=== PATIENT | male | born 1980 | race American Indian/Alaskan Native ===

== ENCOUNTER 2017-07-27 05:38 | Day surgery (SDC) | payer OTHER ==
[~2017-07-27 05:38] MED LIST: Midazolam 1 MG/ML 2 ML SDV ONE; fentaNYL 100 MCG/2 ML SDV ONE
[2017-07-27] MEDS ORDERED: Midazolam 1 MG/ML 2 ML SDV IV ONE ×7 (05:39→06:37)
[2017-07-27] MEDS ORDERED: fentaNYL 100 MCG/2 ML SDV IV ONE ×4 (05:39→06:39)
[2017-07-27] MEDS ORDERED: Dextrose 5%-0.45% NaCl 1,000 ML IV SCH (06:30)
[2017-07-27] MEDS ORDERED: Sodium Chloride 0.9% 10 ML Syringe FLUSH PRN (06:30)
--- NOTE | 2017-07-27 07:30 | OR ---
DATE: 07/27/2017 PROCEDURE: Total colonoscopy. INSTRUMENT USED: CF-H180AL Olympus video colonoscope. Olympus disposable detachment. PREMEDICATIONS: Fentanyl 125 mcg intravenous, Versed 4 mg intravenous. The procedure was done under pulse oximetry, BP recording, and matchbook maker. INDICATION: The patient with rectal bleeding. Colonoscopic examination is done for detection of any polypoid lesions and removal, endoscopic hemostasis therapy if needed. DESCRIPTION OF PROCEDURE: Initial rectal exam was unremarkable. Rigid anoscopy showed small internal hemorrhoids without bleed from them. The colonoscope was passed with ease up to the ileocecal area, photographs were taken of the normal- appearing cecum, identified by landmarks of appendiceal orifice and double- bulged ileocecal folds. No bleeding was noted from any of the visualized areas at the commencement of the examination. No stricture. No vascular ectasia. No large isolated ulcerations seen. No evidence of diffuse inflammatory bowel disease in the form of friability, contact bleeding, or ulcerations. No polyp or tumor mass identified. There was some fecal material in the colon that had to be aspirated. Probing the proximal sides of folds and flexures, using adequate distention and clearing of the stool material, withdrawal of the scope was made. Cecum to rectum time was over 6 minutes. No bleeding was noted from any of the visualized areas at the completion of examination. IMPRESSION: Internal hemorrhoids. The patient tolerated procedure well. [facility] /[id number]
--- NOTE | 2017-07-27 08:52 | LETTER ---
07/27/2017 Jacque Goncalves NP [facility] [address] [place] [address] RE: FRANSISCO ISMAELCYNDI CALDERÓN : 1980 Dear Ms. Goncalves: Mr. Layton Johnson had colonoscopic examination done this morning, and he tolerated the procedure well. I herewith send a copy of the endoscopy note and photographs for your review. Thank you. Sincerely, [facility] /[id number]
== END 2017-07-27 08:50 | disposition home or self-care (01) ==
LOC: DL.ENDO 05:38
PROVIDERS: ATTEND Internal Medicine Gastroenterology
DX: K64.8 Other hemorrhoids (principal); E66.9 Obesity, unspecified; Z72.0 Tobacco use
CPT/HCPCS: 45378; J2250; J3010; J7042

== ENCOUNTER 2020-04-19 21:26 | Emergency (ER) | payer BC, OTHER ==
--- NOTE | 2020-04-19 21:58 | EDM.PDOC ---
ED HPI GENERAL MEDICAL PROBLEM - General Stated Complaint: RIGHT HAND CAST TO TIGHT Time Seen by Provider: 04/19/20 21:30 Source of Information: Reports: Patient History Limitations: Reports: No Limitations - History of Present Illness INITIAL COMMENTS - FREE TEXT/NARRATIVE: C/O cast to tight, fx 3 weeks ago, new cast on Sunday, increased pain throbbing, tingling in extremity since. Scheduled to see ortho later today but can't wait. Notes used sling with prior cast but since sunday has not been using sling or keeping elevated as much. Tried ice in evening but did not help. Right Wrist Pain Score (Numeric/FACES): 4 - Related Data Allergies Allergy/AdvReac Type Severity Reaction Status Date / Time No Known Allergies Allergy Verified 04/19/20 21:34 Home Meds: Home Meds Acetaminophen/Codeine [Tylenol with Codeine No.3 300MG/30MG] 1 tab PO Q4H PRN 04/19/20 [History] Albuterol [Proair HFA] 2 puff IN Q4HR PRN 04/19/20 [History] Amitriptyline [Elavil] 10 mg PO DAILY 04/19/20 [History] Ibuprofen 800 mg PO Q12HR 04/19/20 [History] Itraconazole [Sporanox] 100 mg PO BID 04/19/20 [History] lisinopriL [Lisinopril] 20 mg PO DAILY 04/19/20 [History] Past Medical History HEENT History: Reports: Impaired Vision, Other (See Below) Other HEENT History: BILATERAL ASTIGMATISM Cardiovascular History: Reports: Heart Murmur, Hypertension, Other (See Below) Other Cardiovascular History: 'BORN WITH HEART MURMUR' Respiratory History: Reports: None Gastrointestinal History: Reports: Other (See Below) Other Gastrointestinal History: RECTAL BLEEDING Genitourinary History: Reports: Other (See Below) Other Genitourinary History: MICROSCOPIC HEMATURIA Musculoskeletal History: Reports: Other (See Below) Other Musculoskeletal History: LOWER LEFT BACK PAIN Neurological History: Reports: None Psychiatric History: Reports: Addiction, Anxiety, Other (See Below) Other Psychiatric History: TOBACCO HABITUATION Endocrine/Metabolic History: Reports: None Hematologic History: Reports: None Immunologic History: Reports: None Oncologic (Cancer) History: Reports: None Dermatologic History: Reports: None - Infectious Disease History Infectious Disease History: Reports: Chicken Pox, Influenza - Past Surgical History Head Surgeries/Procedures: Reports: None HEENT Surgical History: Reports: None Cardiovascular Surgical History: Reports: None Respiratory Surgical History: Reports: None GI Surgical History: Reports: None Male Surgical History: Reports: None Endocrine Surgical History: Reports: None Neurological Surgical History: Reports: None Musculoskeletal Surgical History: Reports: None Oncologic Surgical History: Reports: None Dermatological Surgical History: Reports: None Social & Family History - Family History Family Medical History: Noncontributory - Tobacco Use Smoking Status *Q: Never Smoker Second Hand Smoke Exposure: No - Caffeine Use Caffeine Use: Reports: None - Recreational Drug Use Recreational Drug Use: No Review of Systems - Review of Systems Review Of Systems: Comprehensive ROS is negative, except as noted in HPI. ED EXAM, GENERAL - Physical Exam Exam: See Below Exam Limited By: No Limitations General Appearance: Alert, Mild Distress Eye Exam: Bilateral Eye: EOMI, PERRL Ears: Hearing Grossly Normal Nose: Normal Inspection Throat/Mouth: Normal Voice Head: Atraumatic Cardiovascular: Normal Peripheral Pulses, Regular Rate, Rhythm, No Edema Extremities: Normal Capillary Refill, Arm Pain (right), Other (short arm cast right upper, good cap refill no obvious swelling, mild tightness of cast above wrist, with proximal border adequate spacing ) Neurological: Alert, Oriented, Normal Cognition, No Motor/Sensory Deficits Psychiatric: Normal Affect, Normal Mood Skin Exam: Warm, Dry, Intact, Normal Color ED TRAUMA EXTREMITY PROCEDURES - Additional/Other Procedure(s) Other (Free Text) Procedure(s): bilateral partial release with saw, proximal to mid cast notes some improvement Course - Vital Signs Last Recorded V/S: Last Vital Signs Temp 96.7 F L 04/19/20 21:30 Pulse 97 04/19/20 21:30 Resp 18 04/19/20 21:30 BP 106/86 04/19/20 21:30 Pulse Ox 98 04/19/20 21:30 Departure - Departure Time of Disposition: 21:53 Disposition: Home, Self-Care 01 Condition: Good Clinical Impression: Cast discomfort Wrist fracture, left Qualifiers: Encounter type: sequela Fracture type: closed Qualified Code(s): S62.102S - Fracture of unspecified carpal bone, left wrist, sequela - Discharge Information *PRESCRIPTION DRUG MONITORING PROGRAM REVIEWED*: No *COPY OF PRESCRIPTION DRUG MONITORING REPORT IN PATIENT MARGOT: No Instructions: Cast or Splint Care, Adult, [id number] Referrals: PCP,None [Primary Care Provider] - Forms: ED Department Discharge Additional Instructions: ELEVATE EXTREMITY sling alternate tylenol and ibuprofen for discomfort follow up with ortho tomorrow as scheduled Sepsis Event Note (ED) - Evaluation Sepsis Screening Result: No Definite Risk
== END 2020-04-19 21:56 | disposition home or self-care (01) ==
LOC: DL.ED 21:26
DX: S62.102S Fracture of unspecified carpal bone, left wrist, sequela (principal); Z47.89 Encounter for other orthopedic aftercare; I10 Essential (primary) hypertension; Z79.899 Other long term (current) drug therapy; X58.XXXS Exposure to other specified factors, sequela
CPT/HCPCS: 99282

== ENCOUNTER 2021-01-19 08:46 | Emergency (ER) | payer BC, OTHER ==
--- NOTE | 2021-01-19 09:23 | EDM.PDOC ---
ED HPI GENERAL MEDICAL PROBLEM - General Stated Complaint: [id number] SOB Time Seen by Provider: 01/19/21 09:22 Source of Information: Reports: Patient, Old Records, RN, RN Notes Reviewed History Limitations: Reports: No Limitations - History of Present Illness INITIAL COMMENTS - FREE TEXT/NARRATIVE: Layton is a 40 y/o male who presents to the ED via personal vehicle with complaints of persistent shortness of breath. The patient reports he has experienced this shortness of breath for roughly one month; he has an appointment with pulmonology on 01/25/21. He underwent a CT on 12/31/20 to further investigate a nodule noted in his right upper lung on CXR which confirmed a 4mm parenchymal granuloma. The patient reports utilizing DuoNebs q4h for the past month, which do provide alleviation of his symptoms. He also has been on two pulmonary bursts of prednisone 20mg on 12/01/20 and 12/28/20; the first pulmonary burst was accompanied with a Z-pack. The patient states he notices marked improvement in his breathing while on steroids, and for a few days after, however he returns to requiring frequent nebulizers a few days after completion of the steroids. He denies fever, shaking chills, post-nasal drip, sore throat, chest pain, palpitations, abdominal pain, nausea, vomiting, or diarrhea. He does attest to chest pressure when supine and dry cough. He reports a history of cigarette smoking with quit date of 2017; he reports he continues to smoke marijuana, but hasn't smoked in about three days. He denies alcohol use. - Related Data Allergies Allergy/AdvReac Type Severity Reaction Status Date / Time No Known Allergies Allergy Verified 04/19/20 21:34 Home Meds: Home Meds Acetaminophen/Codeine [Tylenol with Codeine No.3 300MG/30MG] 1 tab PO Q4H PRN 04/19/20 [History] Albuterol [Proair HFA] 2 puff IN Q4HR PRN 04/19/20 [History] Amitriptyline [Elavil] 10 mg PO DAILY 04/19/20 [History] Ibuprofen 800 mg PO Q12HR 04/19/20 [History] Itraconazole [Sporanox] 100 mg PO BID 04/19/20 [History] Ipratropium/Albuterol Sulfate [Iprat-Albut 0.5-3(2.5) mg/3 ml] 3 ml IH QID PRN 01/19/21 [History] Losartan [Cozaar] 25 mg PO DAILY 01/19/21 [History] Past Medical History HEENT History: Reports: Impaired Vision, Other (See Below) Other HEENT History: BILATERAL ASTIGMATISM Cardiovascular History: Reports: Heart Murmur, Hypertension, Other (See Below) Other Cardiovascular History: 'BORN WITH HEART MURMUR' Respiratory History: Reports: None Gastrointestinal History: Reports: Other (See Below) Other Gastrointestinal History: RECTAL BLEEDING Genitourinary History: Reports: Other (See Below) Other Genitourinary History: MICROSCOPIC HEMATURIA Musculoskeletal History: Reports: Other (See Below) Other Musculoskeletal History: LOWER LEFT BACK PAIN Neurological History: Reports: None Psychiatric History: Reports: Addiction, Anxiety, Other (See Below) Other Psychiatric History: TOBACCO HABITUATION Endocrine/Metabolic History: Reports: None Hematologic History: Reports: None Immunologic History: Reports: None Oncologic (Cancer) History: Reports: None Dermatologic History: Reports: None - Infectious Disease History Infectious Disease History: Reports: Chicken Pox, Influenza - Past Surgical History Head Surgeries/Procedures: Reports: None HEENT Surgical History: Reports: None Cardiovascular Surgical History: Reports: None Respiratory Surgical History: Reports: None GI Surgical History: Reports: None Male Surgical History: Reports: None Endocrine Surgical History: Reports: None Neurological Surgical History: Reports: None Musculoskeletal Surgical History: Reports: None Oncologic Surgical History: Reports: None Dermatological Surgical History: Reports: None Social & Family History - Family History Family Medical History: No Pertinent Family History - Caffeine Use Caffeine Use: Reports: None ED ROS GENERAL - Review of Systems Review Of Systems: Comprehensive ROS is negative, except as noted in HPI. ED EXAM, GENERAL - Physical Exam Exam: See Below Exam Limited By: No Limitations General Appearance: Alert, Anxious, Obese Eye Exam: Bilateral Eye: EOMI, Normal Inspection, PERRL (4mm) Ears: Normal External Exam, Normal Canal, Hearing Grossly Normal Ear Exam: Bilateral Ear: Auricle Normal, Canal Normal, TM Dull Nose: Normal Inspection, Normal Mucosa, No Blood Throat/Mouth: Normal Inspection, Normal Oropharynx, Normal Voice, No Airway Compromise Head: Atraumatic, Normocephalic Neck: Normal Inspection, Supple, Non-Tender, Full Range of Motion Respiratory/Chest: No Accessory Muscle Use, Chest Non-Tender, Wheezing (Inspiratory to right upper lobe) Cardiovascular: Normal Peripheral Pulses, Regular Rate, Rhythm, No Edema, No Gallop, No JVD, No Murmur, No Rub Peripheral Pulses: 2+: Radial (L), Radial (R) GI/Abdominal: Normal Bowel Sounds, Soft, Non-Tender, No Organomegaly, No Distention, No Abnormal Bruit, No Mass (Male) Exam: Deferred Rectal (Males) Exam: Deferred Back Exam: Normal Inspection, Full Range of Motion Extremities: Normal Inspection, Normal Range of Motion, Non-Tender, No Pedal Edema, Normal Capillary Refill Neurological: Alert, Oriented, CN II-XII Intact, Normal Cognition, Normal Gait, No Motor/Sensory Deficits Psychiatric: Anxious Skin Exam: Warm, Dry, Intact, Normal Color, No Rash Lymphatic: No Adenopathy #1 Interpretation EKG Date: 01/19/21 Time: 09:06 Rhythm: NSR Rate (Beats/Min): 78 [place]: Normal P-Wave: Present QRS: Wide (1.13) ST-T: Normal QT: Normal DE/PQ Interval: 0.153 Comparison: NA - No Prior EKG EKG Interpretation Comments: NSR; No evidence of myocardial ischemia Course - Vital Signs Last Recorded V/S: Last Vital Signs Temp 97.8 F 01/19/21 10:45 Pulse 74 01/19/21 10:45 Resp 20 01/19/21 10:45 BP 173/89 H 01/19/21 10:45 Pulse Ox 100 01/19/21 10:45 - Orders/Labs/Meds Labs: Laboratory Tests 01/19/21 01/19/21 01/19/21 Range/Units 08:55 09:11 09:11 WBC 10.2 H (5.0-10.0) 10^3/uL RBC 4.45 L (4.6-6.2) 10^6/uL Hgb 14.0 (14.0-18.0) g/dL Hct 41.5 (40.0-54.0) % MCV 93.3 (80-100) fL MCH 31.5 (27.0-34.0) pg MCHC 33.7 (33.0-35.0) g/dL Plt Count 248 (150-450) 10^3/uL Neut % (Auto) 58.3 (42.2-75.2) % Lymph % (Auto) 20.0 L (20.5-50.1) % Mason % (Auto) 5.4 (2-8) % Eos % (Auto) 15.5 H (1.0-3.0) % Baso % (Auto) 0.8 (0.0-1.0) % D-Dimer, Quantitative (0-400) ng/mL Sodium 141 (136-145) mmol/L Potassium 3.8 (3.5-5.1) mmol/L Chloride 106 (98-107) mmol/L Carbon Dioxide 20 L (21-32) mmol/L Anion Gap 18.8 H (7-13) mEq/L BUN 15 (7-18) mg/dL Creatinine 1.08 (0.70-1.30) mg/dL Est Cr Clr Drug Dosing 96.84 mL/min Estimated GFR (MDRD) > 60 BUN/Creatinine Ratio 13.9 (No establ ref range) Glucose 97 (70-99) mg/dL Lactic Acid (0.4-2.0) mmol/L Calcium 8.7 (8.5-10.1) mg/dL Total Bilirubin 0.7 (0.2-1.0) mg/dL AST 15 (15-37) U/L ALT 21 (16-63) U/L Alkaline Phosphatase 68 (46-116) U/L Troponin I < 0.017 (0.000-0.056) ng/mL C-Reactive Protein 0.9 (0.0-0.9) mg/dL Total Protein 6.7 (6.4-8.2) g/dL Albumin 3.6 (3.4-5.0) g/dL Globulin 3.1 Albumin/Globulin Ratio 1.2 Ethyl Alcohol < 3 (0) mg/dL Influenza Type A RNA Negative (NEGATIVE) Influenza Type B RNA Negative (NEGATIVE) SARS-CoV-2 RNA (LIZ) Negative (NEGATIVE) 01/19/21 01/19/21 Range/Units 09:11 09:11 WBC (5.0-10.0) 10^3/uL RBC (4.6-6.2) 10^6/uL Hgb (14.0-18.0) g/dL Hct (40.0-54.0) % MCV (80-100) fL MCH (27.0-34.0) pg MCHC (33.0-35.0) g/dL Plt Count (150-450) 10^3/uL Neut % (Auto) (42.2-75.2) % Lymph % (Auto) (20.5-50.1) % Mason % (Auto) (2-8) % Eos % (Auto) (1.0-3.0) % Baso % (Auto) (0.0-1.0) % D-Dimer, Quantitative < 100 (0-400) ng/mL Sodium (136-145) mmol/L Potassium (3.5-5.1) mmol/L Chloride (98-107) mmol/L Carbon Dioxide (21-32) mmol/L Anion Gap (7-13) mEq/L BUN (7-18) mg/dL Creatinine (0.70-1.30) mg/dL Est Cr Clr Drug Dosing mL/min Estimated GFR (MDRD) BUN/Creatinine Ratio (No establ ref range) Glucose (70-99) mg/dL Lactic Acid 1.7 (0.4-2.0) mmol/L Calcium (8.5-10.1) mg/dL Total Bilirubin (0.2-1.0) mg/dL AST (15-37) U/L ALT (16-63) U/L Alkaline Phosphatase (46-116) U/L Troponin I (0.000-0.056) ng/mL C-Reactive Protein (0.0-0.9) mg/dL Total Protein (6.4-8.2) g/dL Albumin (3.4-5.0) g/dL Globulin Albumin/Globulin Ratio Ethyl Alcohol (0) mg/dL Influenza Type A RNA (NEGATIVE) Influenza Type B RNA (NEGATIVE) SARS-CoV-2 RNA (LIZ) (NEGATIVE) - Radiology Interpretation Free Text/Narrative:: [facility] Final Radiology Report Call: [phone] assistance Online chat: [email or web address] Name: LAYTON MOODY Age: 40Years M Date: 01/19/2021 SSN: -- : 1980 Study: CR CHEST 1V FRONTAL Requesting Physician: Anayeli Restrepo Images: 1 Addl Studies: Provided Clinical History: shortness of breath Contrast: Contrast Medium: Contrast Amount: Contrast Method: CONFIDENTIALITY STATEMENT This report is intended only for use by the referring physician, and only in accordance with law. If you received this in error, call [phone]. Page 1 of 1 PROCEDURE INFORMATION: Exam: XR Chest Exam date and time: 01/19/2021 9:37 AM Age: 40 years old Clinical indication: Shortness of breath TECHNIQUE: Imaging protocol: XR of the chest. Views: 1 view. COMPARISON: CT Chest w Cont 12/31/2020 1:45 PM FINDINGS: Lungs: Unremarkable. No consolidation. Pleural spaces: Unremarkable. No pleural effusion. No pneumothorax. Heart/Mediastinum: Unremarkable. No cardiomegaly. Bones/joints: Unremarkable. IMPRESSION: No acute findings. Thank you for allowing us to participate in the care of your patient. Dictated and Authenticated by: Harjinder Bauer MD 01/19/2021 9:49 AM Central Time ([place] & [place]) - Re-Assessments/Exams Free Text/Narrative Re-Assessment/Exam: 01/20/21 CXR unremarkable for acute processes; no evidence of pneumonia, effusion, or edema. COVID and influenza negative. Electrolytes, kidney function, and liver function appropriate via CMP. Slight WBC elevation at 10.8 with no shift present; eosinophilia noted. Discussed findings of examination, lab work, and imaging with patient. Patient instructed to keep appointment with Pulmonology as he is in need of a control therapy medication in addition to his rescue medications. Patient states he is worried about "walking pneumonia" as he had an uncle diagnosed with this problem; discussed that this would be noted on x-ray and lab work. The patient reports he has not been taking his ARB for two days as he feels this is cause for his SOB; blood pressure 170s, systolic. Discussed side effects of ARBs, but risk vs. benefit, as well as discussing his concerns with his primary care provider. Red flag signs and symptoms which would warrant reevaluation reviewed. Patient verbalized understanding and agreement with the plan of care. Departure - Departure Time of Disposition: 10:36 Disposition: Home, Self-Care 01 Condition: Good Clinical Impression: Chronic shortness of breath - Discharge Information *PRESCRIPTION DRUG MONITORING PROGRAM REVIEWED*: Not Applicable *COPY OF PRESCRIPTION DRUG MONITORING REPORT IN PATIENT MARGOT: Not Applicable Instructions: Shortness of Breath, Adult, [id number] Referrals: Jacque Goncalves NP [Primary Care Provider] - Forms: ED Department Discharge Additional Instructions: 1.) Keep your appointment with your primary care provider tomorrow and discuss long-acting inhalers for chronic shortness of breath as well as new blood pressure medications. 2.) Keep your appointment with Pulmonology for 01/25/21. 3.) Continue with nebulizer treatments, as needed, for shortness of breath. 4.) Continue with Tessalon perles, as needed, for cough. Sepsis Event Note (ED) - Evaluation Sepsis Screening Result: No Definite Risk
[2021-01-19 09:42] LABS: ANION GAP 18.8 mEq/L (7-13); CHLORIDE,CL 106 mmol/L (98-107); SODIUM,NA 141 mmol/L (136-145)
--- NOTE | 2021-01-19 09:50 | CR ---
PROCEDURE INFORMATION: Exam: XR Chest Exam date and time: 01/19/2021 9:37 AM Age: 40 years old Clinical indication: Shortness of breath TECHNIQUE: Imaging protocol: XR of the chest. Views: 1 view. COMPARISON: CT Chest w Cont 12/31/2020 1:45 PM FINDINGS: Lungs: Unremarkable. No consolidation. Pleural spaces: Unremarkable. No pleural effusion. No pneumothorax. Heart/Mediastinum: Unremarkable. No cardiomegaly. Bones/joints: Unremarkable. IMPRESSION: No acute findings.
[2021-01-19 09:57] LABS: CORONAVIRUS COVID-19 NAA NEGATIVE (NEGATIVE)
== END 2021-01-19 10:48 | disposition home or self-care (01) ==
LOC: DL.ED 08:46
DX: R06.02 Shortness of breath (principal); I10 Essential (primary) hypertension; Z79.899 Other long term (current) drug therapy; Z20.822 Contact with and (suspected) exposure to COVID-19
CPT/HCPCS: 0240U; 36415; 71045; 80053; 80307; 83605; 84484; 85025; 85379; 86140; 93005; 93010; 99283; 99285-25

== ENCOUNTER 2021-10-04 09:45 | Emergency (ER) | payer BC, OTHER ==
--- NOTE | 2021-10-04 10:25 | EDM.PDOC ---
ED HPI GENERAL MEDICAL PROBLEM - General Chief Complaint: Fever Stated Complaint: POSSIBLE INFLUENZA Time Seen by Provider: 10/04/21 10:23 Source of Information: Reports: Patient, RN, RN Notes Reviewed History Limitations: Reports: No Limitations - History of Present Illness INITIAL COMMENTS - FREE TEXT/NARRATIVE: Pt presents to ER from home by POV with c/o fever, and body aches. Admits to mild cough. Pt thinks he has Influenza. Onset: Sudden Duration: Day(s): (1-2) Location: Reports: Chest, Generalized Quality: Reports: Ache Severity: Moderate Improves with: Reports: None Worsens with: Reports: None Associated Symptoms: Reports: No Other Symptoms - Related Data Allergies Allergy/AdvReac Type Severity Reaction Status Date / Time No Known Allergies Allergy Verified 04/19/20 21:34 Home Meds: Home Meds Acetaminophen/Codeine [Tylenol with Codeine No.3 300MG/30MG] 1 tab PO Q4H PRN 04/19/20 [History] Albuterol [Proair HFA] 2 puff IN Q4HR PRN 04/19/20 [History] Amitriptyline [Elavil] 10 mg PO DAILY 04/19/20 [History] Ibuprofen 800 mg PO Q12HR 04/19/20 [History] Itraconazole [Sporanox] 100 mg PO BID 04/19/20 [History] Ipratropium/Albuterol Sulfate [Iprat-Albut 0.5-3(2.5) mg/3 ml] 3 ml IH QID PRN 01/19/21 [History] Losartan [Cozaar] 25 mg PO DAILY 01/19/21 [History] Past Medical History HEENT History: Reports: Impaired Vision, Other (See Below) Other HEENT History: BILATERAL ASTIGMATISM Cardiovascular History: Reports: Heart Murmur, Hypertension, Other (See Below) Other Cardiovascular History: 'BORN WITH HEART MURMUR' Respiratory History: Reports: None Gastrointestinal History: Reports: Other (See Below) Other Gastrointestinal History: RECTAL BLEEDING Genitourinary History: Reports: Other (See Below) Other Genitourinary History: MICROSCOPIC HEMATURIA Musculoskeletal History: Reports: Other (See Below) Other Musculoskeletal History: LOWER LEFT BACK PAIN Neurological History: Reports: None Psychiatric History: Reports: Addiction, Anxiety, Other (See Below) Other Psychiatric History: TOBACCO HABITUATION Endocrine/Metabolic History: Reports: None Hematologic History: Reports: None Immunologic History: Reports: None Oncologic (Cancer) History: Reports: None Dermatologic History: Reports: None - Infectious Disease History Infectious Disease History: Reports: Chicken Pox, Influenza - Past Surgical History Head Surgeries/Procedures: Reports: None HEENT Surgical History: Reports: None Cardiovascular Surgical History: Reports: None Respiratory Surgical History: Reports: None GI Surgical History: Reports: None Male Surgical History: Reports: None Endocrine Surgical History: Reports: None Neurological Surgical History: Reports: None Musculoskeletal Surgical History: Reports: None Oncologic Surgical History: Reports: None Dermatological Surgical History: Reports: None Social & Family History - Family History Family Medical History: No Pertinent Family History - Caffeine Use Caffeine Use: Reports: None - Living Situation & Occupation Living situation: Reports: with Family ED ROS GENERAL - Review of Systems Review Of Systems: Comprehensive ROS is negative, except as noted in HPI. ED EXAM, GENERAL - Physical Exam Exam: See Below Exam Limited By: No Limitations General Appearance: Alert, WD/WN, No Apparent Distress Nose: Nasal Drainage (Clear, mild) Throat/Mouth: Normal Inspection, Normal Lips, Normal Teeth, Normal Gums, Normal Oropharynx, Normal Voice, No Airway Compromise Head: Atraumatic, Normocephalic Neck: Normal Inspection, Supple, Non-Tender, Full Range of Motion Respiratory/Chest: No Respiratory Distress, Lungs Clear, Normal Breath Sounds, No Accessory Muscle Use, Chest Non-Tender Cardiovascular: Regular Rate, Rhythm, No Edema GI/Abdominal: Normal Bowel Sounds, Soft, Non-Tender, No Organomegaly, No Distention, No Abnormal Bruit, No Mass Back Exam: Normal Inspection Extremities: Normal Inspection Neurological: Alert, Oriented, CN II-XII Intact, Normal Gait, No Motor/Sensory Deficits Psychiatric: Normal Mood Skin Exam: Warm, Dry, Intact, Normal Color, No Rash Course - Vital Signs Last Recorded V/S: Last Vital Signs Temp 97.5 F 10/04/21 11:01 Pulse 104 H 10/04/21 11:01 Resp 18 10/04/21 11:01 BP 134/91 H 10/04/21 11:01 Pulse Ox 93 L 10/04/21 11:01 - Orders/Labs/Meds Labs: Laboratory Tests 10/04/21 Range/Units 09:55 Influenza Type A RNA Negative (NEGATIVE) RSV RNA (INAAT) Negative (NEGATIVE) Influenza Type B RNA Negative (NEGATIVE) SARS-CoV-2 RNA ([facility]) Positive H (NEGATIVE) Departure - Departure Time of Disposition: 11:12 Disposition: Home, Self-Care 01 Condition: Good Clinical Impression: COVID-19 virus infection - Discharge Information *PRESCRIPTION DRUG MONITORING PROGRAM REVIEWED*: Not Applicable *COPY OF PRESCRIPTION DRUG MONITORING REPORT IN PATIENT MARGOT: Not Applicable Instructions: 10 Things You Can Do to Manage Your COVID-19 Symptoms at Home - [facility] (04/15/2021), COVID-19: What to Do If You Are Sick- [facility] (12/15/2020) Forms: ED Department Discharge Additional Instructions: Rx: Tessalon Perles 200mg May use Vitamin C 1000mg to 3000mg daily, Zinc 25mg to 50mg daily, and Vitamin D up to 10,000 Units daily for 2 weeks (14 days). Use Tylenol (Acetaminophen) and/or Ibuprofen (Motrin/Advil) as needed for fevers or body aches. Follow directions on label for dosing and precautions. Drink plenty of water, Pedialyte, or Gatorade. Follow up in clinic or return to ER if you develop any difficulty breathing. Sepsis Event Note (ED) - Focused Exam Vital Signs: Vital Signs Temp Pulse Resp BP Pulse Ox 10/04/21 11:01 97.5 F 104 H 18 134/91 H 93 L
[2021-10-04 10:38] LABS: RESPIRATORY SYNCYTIAL VIR NAA NEGATIVE (NEGATIVE)
[2021-10-04 10:51] LABS: CORONAVIRUS COVID-19 NAA POSITIVE (NEGATIVE)
== END 2021-10-04 11:25 | disposition home or self-care (01) ==
LOC: DL.ED 09:45
DX: U07.1 COVID-19 (principal); I10 Essential (primary) hypertension; Z79.899 Other long term (current) drug therapy
CPT/HCPCS: 0241U; 99283